=== PATIENT | female | born 1975 | race American Indian/Alaskan Native ===

== ENCOUNTER 2019-01-18 02:01 | Emergency (ER) | payer SELFPAY ==
[2019-01-18 02:31] VITALS: BP 112/68
[2019-01-18] MEDS ORDERED: TYLENOL ONE (02:34)
[2019-01-18] MEDS ORDERED: TYLENOL PO ONE (02:35)
[2019-01-18 03:47] LABS: Alanine Aminotransferase 10 units/L (7-56); Albumin 4.2 g/dL (3.9-5); BUN/Creatinine Ratio 16; Blood Urea Nitrogen 8 mg/dL (7-17); Hemolysis Index 0; Mean Corpuscular HGB Conc 28 % (30-34); Platelet Count 360 K/mm3 (140-440); Red Blood Count 4.86 M/mm3 (3.65-5.03)
[2019-01-18 03:48] LABS: Hematocrit 26.3 % (30.3-42.9); Hemoglobin 7.4 gm/dl (10.1-14.3); Mean Corpuscular Volume 54 fl (79-97); Red Cell Distribution Width 22.2 % (13.2-15.2)
[2019-01-18 04:24] LABS: Basophils % (Manual) 0 % (0.0-1.8); Hypochromasia 1+; Total Cells Counted 100
[2019-01-18 04:25] LABS: Platelet Estimate Consistent w Auto; Target Cells Few; Tear Drop Cells Rare
[2019-01-18 05:13] LABS: Bacteria,Urine 1+ /HPF (Negative); Bilirubin,Urine NEG (Negative); Blood,Urine NEG (Negative); Color,Urine Straw (Yellow); Protein,Urine <15 mg/dL mg/dL (Negative); Urobilinogen,Urine < 2.0 mg/dL (<2.0)
--- NOTE | 2019-01-18 07:45 | Emergency Department Report ---
ED Abdominal Pain HPI - General Chief Complaint: Abdominal Pain Stated Complaint: LOWER ABDOMINAL PAIN Time Seen by Provider: 01/18/19 07:19 Source: patient Mode of arrival: Ambulatory Limitations: No Limitations - History of Present Illness Initial Comments: 43-year-old female with no prior medical history presents with pelvic pain times today. Patient says she woke up this morning and this raises some pelvic pain. She rates the pain at 8 out of 10 in intensity. States is constant localized to pelvic region. Patient denies any fever, vaginal bleeding, dysuria, vaginal discharge, diarrhea, nausea or vomiting MD Complaint: abdominal pain -: Gradual Location: LLQ, RLQ Radiation: none Migration to: no migration Severity: moderate Severity scale (0 -10): 6 Quality: aching Consistency: constant Worsens With: nothing Associated Symptoms: nausea - Related Data Previous Rx's Medication Instructions Recorded Last Taken Type Fluconazole [Diflucan TAB] 150 mg PO ONCE #1 tablet 12/05/18 Unknown Rx metroNIDAZOLE [Flagyl] 500 mg PO BID 10 Days #20 tab 12/05/18 Unknown Rx Ibuprofen [Motrin] 800 mg PO Q8HR #30 tablet 01/18/19 Unknown Rx Ondansetron (Nf) [Zofran TAB] 8 mg PO Q8HR PRN #20 tablet 01/18/19 Unknown Rx traMADol [Ultram 50 MG tab] 50 mg PO Q6HR PRN #20 tablet 01/18/19 Unknown Rx Allergies Allergy/AdvReac Type Severity Reaction Status Date / Time No Known Allergies Allergy Verified 01/18/19 02:34 ED Review of Systems ROS: Stated complaint: LOWER ABDOMINAL PAIN Other details as noted in HPI Comment: All other systems reviewed and negative ED Past Medical Hx - Past Medical History Previous Medical History?: No - Surgical History Past Surgical History?: Yes Additional Surgical History: tubal ligation - Social History Smoking Status: Current Every Day Smoker Substance Use Type: Alcohol, Marijuana - Medications Home Medications: Home Medications Medication Instructions Recorded Confirmed Last Taken Type Fluconazole [Diflucan TAB] 150 mg PO ONCE #1 tablet 12/05/18 Unknown Rx metroNIDAZOLE [Flagyl] 500 mg PO BID 10 Days #20 tab 12/05/18 Unknown Rx Ibuprofen [Motrin] 800 mg PO Q8HR #30 tablet 01/18/19 Unknown Rx Ondansetron (Nf) [Zofran TAB] 8 mg PO Q8HR PRN #20 tablet 01/18/19 Unknown Rx traMADol [Ultram 50 MG tab] 50 mg PO Q6HR PRN #20 tablet 01/18/19 Unknown Rx ED Physical Exam - General Limitations: No Limitations General appearance: alert, in no apparent distress - Head Head exam: Present: atraumatic, normocephalic - Eye Eye exam: Present: normal appearance - ENT ENT exam: Present: mucous membranes moist - Neck Neck exam: Present: normal inspection - Respiratory Respiratory exam: Present: normal lung sounds bilaterally. Absent: respiratory distress - Cardiovascular Cardiovascular Exam: Present: regular rate, normal rhythm. Absent: systolic murmur, diastolic murmur, rubs, gallop - GI/Abdominal GI/Abdominal exam: Present: soft, normal bowel sounds - Extremities Exam Extremities exam: Present: normal inspection - Back Exam Back exam: Present: normal inspection - Neurological Exam Neurological exam: Present: alert, oriented X3 - Psychiatric Psychiatric exam: Present: normal affect, normal mood - Skin Skin exam: Present: warm, dry, intact, normal color. Absent: rash ED Course Vital Signs 01/18/19 02:28 Temperature 97.4 F L Pulse Rate 113 H Respiratory 20 Rate Blood Pressure 112/68 O2 Sat by Pulse 98 Oximetry - Reevaluation(s) Reevaluation #1: Patient is laying comfortably in her ED. She states that pain has subsided. Tramadol 50 mg. She is in no acute distress at the moment. is with patient. 01/18/19 8:23 ED Medical Decision Making - Lab Data Result diagrams: 01/18/19 02:56 01/18/19 02:56 - Radiology Data Radiology results: report reviewed, image reviewed FINAL REPORT EXAM: US TRANSVAGINAL HISTORY: superpubic pain COMPARISONS: None. FINDINGS: Transvaginal grayscale and color Doppler pelvic ultrasound The uterus is anteverted and measures 10.8 x 4.3 x 6.1 cm. Myometrium is remarkable for at least 2 predominantly intramural fibroids measuring up to 2.8 x 2.3 x 2.9 cm. The endometrium is heterogeneous and measures up to 15 millimeters in thickness. At the lower portion of the endometrium there is a focal echogenic area measuring approximately 12 x 6 millimeters. Trace fluid may be present in the endometrium. No significant free fluid in the pelvis. A functional right ovarian cyst with lace-like pattern of internal echoes measures up to 2.4 cm. The ovaries are otherwise sonographically unremarkable with normal color Doppler evaluation and measure 3.9 x 2.2 x 3.2 cm on the right and 1.8 x 3 x 1.6 cm on the left. IMPRESSION: The uterus contains at least 2 predominantly intramural fibroids measuring up to 2.9 cm. The endometrium is heterogeneous and may contain a polyp or submucosal fibroid measuring up to 1.2 cm. A hemorrhagic right ovarian cyst measures up to 2.4 cm. No follow-up is required based on consensus criteria. Transcribed By: MB Dictated By: SILVIA STEWART MD Electronically Authenticated By: SILVIA STEWART MD Signed Date/Time: 01/18/19 6797 - Medical Decision Making This 43-year-old female present with pelvic pain from ovarian cyst/uterine fibroids Discussed findings with the patient. Ultrasound shows: See reported above Discussed follow-up with [facility] Discussed home medications for pain, heat therapy 3 times a day vital signs is normal patient is no acute distress Critical care attestation.: If time is entered above; I have spent that time in minutes in the direct care of this critically ill patient, excluding procedure time. ED Disposition Clinical Impression: Ovarian cyst, Uterine fibroid, Pelvic pain Disposition: - TO HOME OR SELFCARE Is pt being admited?: No Does the pt Need Aspirin: No Condition: Stable Instructions: Ovarian Cyst (ED), Uterine Fibroids (ED), Abdominal Pain (ED) Additional Instructions: Make sure to follow up with the primary care physician as discussed. Take all your medications as you've been prescribed. If you have any worsening symptoms or develop new symptoms please return to ED immediately. Prescriptions: Ibuprofen [Motrin] 800 mg PO Q8HR #30 tablet Ondansetron (Nf) [Zofran TAB] 8 mg PO Q8HR PRN #20 tablet PRN Reason: Nausea traMADol [Ultram 50 MG tab] 50 mg PO Q6HR PRN #20 tablet PRN Reason: Pain Referrals: RADHA DEAN MD [Primary Care Provider] - 3-5 Days DEB JACKSON MD [Referring] - 3-5 Days [facility] [Outside] - 3-5 Days Forms: Work/School Release Form(ED) Time of Disposition: 08:14
[2019-01-18] MEDS ORDERED: ULTRAM PO ONE (07:46)
--- NOTE | 2019-01-18 07:46 | Ultrasound Report ---
FINAL REPORT EXAM: US PELVIC COMPLETE HISTORY: lower abd pain COMPARISONS: None. FINDINGS: Transabdominal grayscale and color Doppler pelvic ultrasound The uterus is anteverted and measures 10.8 x 4.3 x 6.1 cm. Myometrium is remarkable for at least 2 pr edominantly intramural fibroids measuring up to 2.8 x 2.3 x 2.9 cm. The endometrium is heterogeneous and measures up to 15 millimeters in thickness. At the lower portion of the endometrium there is a fo kevin echogenic area measuring approximately 12 x 6 millimeters. Trace fluid may be present in the endo metrium. No significant free fluid in the pelvis. A functional right ovarian cyst with lace-like pattern of internal echoes measures up to 2.4 cm. The ovaries are otherwise sonographically unremarkable with normal color Doppler evaluation and measure 3 .9 x 2.2 x 3.2 cm on the right and 1.8 x 3 x 1.6 cm on the left. IMPRESSION: The uterus contains at least 2 predominantly intramural fibroids measuring up to 2.9 cm. The endometr ium is heterogeneous and may contain a polyp or submucosal fibroid measuring up to 1.2 cm. A hemorrhagic right ovarian cyst measures up to 2.4 cm. No follow-up is required based on consensus ashanti guidry.
== END 2019-01-18 08:32 | disposition home or self-care (01) ==
LOC: ED 02:01
DX: N83.201 Unspecified ovarian cyst, right side (principal); D25.9 Leiomyoma of uterus, unspecified; F17.200 Nicotine dependence, unspecified, uncomplicated; F12.10 Cannabis abuse, uncomplicated; Z98.51 Tubal ligation status
CPT/HCPCS: 36415; 76830; 76856; 80053; 81001; 85007; 85025